=== PATIENT | female | born 1960 | race American Indian/Alaskan Native ===

== ENCOUNTER 2018-06-20 05:43 | Outpatient (CLI) | payer MEDICAID | END 2018-06-20 05:44 | disposition home or self-care (01) | LOC: CARDIO 05:43 | DX: I10 Essential (primary) hypertension (principal); R94.31 Abnormal electrocardiogram [ECG] [EKG]; Z86.73 Personal history of transient ischemic attack (TIA), and cerebral infarction without residual deficits; M62.81 Muscle weakness (generalized); I63.50 Cerebral infarction due to unspecified occlusion or stenosis of unspecified cerebral artery ==